=== PATIENT | female | born 1960 | race Caucasian/White ===

== ENCOUNTER → 2017-06-27 | Outpatient (CLI) | payer OTHER ==
--- NOTE | 2017-06-27 16:12 | RAD ---
EXAM: MAMMO DORA SCREENING BILATERAL HISTORY: Routine Screening. COMPARISON: 03/29/2015 Standard mammographic views are obtained of the bilateral breasts. Additionally three-dimensional tomographic images obtained. This study was interpreted with the benefit of Computerized Aided Detection (CAD). FINDINGS: The breast parenchyma shows scattered fibroglandular densities. Breast parenchyma level B.. There is no definite new suspicious spiculated mass or worrisome new cluster of microcalcifications. There is again mild benign-appearing calcification. IMPRESSION: No definite new suspicious mass. BI-RADS CATEGORY: 2 BENIGN FINDING RECOMMENDED FOLLOW-UP: 12M 12 MONTH FOLLOW-UP PQRS compliance statement: Patient information was entered into a reminder system with a target due date for the next mammogram. Mammography is a sensitive method for finding small breast cancers, but it does not detect them all and is not a substitute for careful clinical examination. A negative mammogram does not negate a clinically suspicious finding and should not result in delay in biopsying a clinically suspicious abnormality. "Our facility is accredited by the [employer] Mammography [employer]."
== END | disposition home or self-care (01) ==
LOC: MAMMO 13:54
PROVIDERS: ATTEND Nurse Practitioner Family
DX: Z12.31 Encounter for screening mammogram for malignant neoplasm of breast (principal)
CPT/HCPCS: 77063; G0202; 77067

== ENCOUNTER → 2017-07-11 | Outpatient (CLI) | payer OTHER ==
[~2017-07-11] VITALS: Ht 157.5 cm; Wt 72.6 kg
[~2017-07-11] MED LIST: ASCO-151 PO; CHOL10003 PO; SINCALIDE 1.5 MCG in IV NORMAL SALINE 50ML 30 ML IV ONE
--- NOTE | 2017-07-11 08:50 | RAD ---
EXAM: Right upper quadrant ultrasound. HISTORY: Right upper quadrant pain. COMPARISON: None. FINDINGS: Sonographic evaluation of the right upper quadrant was performed. The liver appears normal in parenchymal echotexture. Multiple anechoic lesions are consistent with cysts. Some contain thin septations, but no suspicious solid lesions are seen. The largest cyst measures 4.7 x 4.6 cm. The gallbladder wall is at the upper limits of normal thickness at 3 mm. There are no stones or pericholecystic fluid. There is no sonographic Silverio sign. The common duct measures 4 mm. The visualized portions of the head and body of the pancreas reveal no abnormality. The right kidney measures 11.4 cm. Cortical thickness and echogenicity are preserved. There is no hydronephrosis. The visualized portions of the abdominal aorta and inferior vena cava are grossly patent and normal in caliber. IMPRESSION: 1. The gallbladder wall is at the upper limits of normal thickness. This is nonspecific. Correlate for liver disease or volume overload. There is no cholelithiasis and cholecystitis is less favored. 2. Multiple benign-appearing hepatic cysts.
--- NOTE | 2017-07-11 11:33 | RAD ---
EXAM: Nuclear hepatobiliary scan with ejection fraction. HISTORY: Abdominal pain/nausea. TECHNIQUE: Serial static images are obtained of the liver and biliary system in a frontal projection following IV administration of 5.5 mCi of technetium-99m Choletec. After filling of the gallbladder, 1.5 mcg of sincalide were infused over 30 minutes and dynamic imaging continued over this period. The gallbladder ejection fraction was calculated. FINDINGS: There is prompt hepatic clearance of tracer from the blood pool. There is homogeneous distribution throughout the liver. There is normal filling of the gallbladder and normal emptying into the biliary system and small bowel. The gallbladder ejection fraction is 27.4% (normal >35%). IMPRESSION: 1. Decreased gallbladder ejection fraction suggesting biliary dyskinesia.
== END | disposition home or self-care (01) ==
LOC: US 07:43
PROVIDERS: ATTEND Internal Medicine Gastroenterology
DX: K76.89 Other specified diseases of liver (principal)
CPT/HCPCS: 76705; 78226; 96374; 96375; A9537; J2805

== ENCOUNTER → 2019-03-23 | Outpatient (CLI) | payer OTHER ==
[~2019-03-23] MED LIST changes: -SINCALIDE 1.5 MCG in IV NORMAL SALINE 50ML 30 ML IV ONE
--- NOTE | 2019-03-23 17:14 | RAD ---
INDICATION: Osteoporosis screening. Postmenopausal screening COMPARISON: None. TECHNIQUE: Bone densitometry was performed through the lumbar spine and right proximal femurs. FINDINGS: Lumbar Spine: L1-4 BMD: 1.09 T-Score: -0.8 Femoral Neck: BMD: 0.85 T-Score: -1.4 IMPRESSION: 1. Lumbar spine falls within the normal range. 2. Bilateral femoral neck falls within the osteopenic range. Electronically signed by: Wolf Metzger MD (03/23/2019 5:11 PM) [facility]
--- NOTE | 2019-03-25 15:42 | RAD ---
EXAM: MAMMO DORA SCREENING BILATERAL HISTORY: routine screening evaluation. COMPARISON: Prior mammographic imaging 06/27/2017, 03/29/2015, 02/17/2014 Bilateral CC and MLO views of the breasts were performed. Bilateral breast tomosynthesis was performed in CC and MLO projections. This study was interpreted with the benefit of Computerized Aided Detection (CAD). Breast Density: The breast parenchyma shows scattered fibroglandular densities. Breast parenchyma level B. FINDINGS: The parenchymal pattern appears stable. Benign calcifications are present. No suspicious masses, microcalcifications or architectural distortion is present to suggest malignancy in either breast. The visualized axillae are unremarkable. IMPRESSION: No mammographic evidence of malignancy. BI-RADS CATEGORY: 2 BENIGN FINDING(S) RECOMMENDED FOLLOW-UP: 12M 12 MONTH FOLLOW-UP Annual screening mammography is recommended, unless clinically indicated sooner based on symptoms or change in physical exam. PQRS compliance statement: Patient information was entered into a reminder system with a target due date for the next mammogram. Mammography is a sensitive method for finding small breast cancers, but it does not detect them all and is not a substitute for careful clinical examination. A negative mammogram does not negate a clinically suspicious finding and should not result in delay in biopsying a clinically suspicious abnormality. "Our facility is accredited by the [employer] Mammography [employer]." SHARYND
== END | disposition home or self-care (01) ==
LOC: DXRAD 09:34
PROVIDERS: ATTEND Physician Assistant Medical
DX: Z12.31 Encounter for screening mammogram for malignant neoplasm of breast (principal); Z13.820 Encounter for screening for osteoporosis; N64.89 Other specified disorders of breast; M85.88 Other specified disorders of bone density and structure, other site
CPT/HCPCS: 77063; 77067; 77080

== ENCOUNTER → 2019-10-14 | Outpatient (CLI) | payer OTHER ==
--- NOTE | 2019-10-14 14:14 | RAD ---
2 view left foot study Clinical indications: Left foot pain. Clinical concern for a spur of the heel. FINDINGS: No acute fracture or dislocation or lytic process or periosteal reaction is evident. Prominent plantar spur of the calcaneus is seen. No significant arthritic change is seen. IMPRESSION: Prominent plantar spur of the calcaneus. Electronically signed by: Mateo Tejeda MD (10/14/2019 2:12 PM) [facility]
== END | disposition home or self-care (01) ==
LOC: PMG 13:32
PROVIDERS: ATTEND Registered Nurse
DX: M77.32 Calcaneal spur, left foot (principal)
CPT/HCPCS: 73620

== ENCOUNTER → 2020-04-07 | Outpatient (CLI) | payer OTHER ==
--- NOTE | 2020-04-10 17:51 | RAD ---
DATE: 04/07/2020 1:30 PM EXAM: MAMMO DORA SCREENING BILATERAL HISTORY: Screening COMPARISON: 03/23/2019, 06/27/2017 Bilateral CC and MLO views of the breasts were performed. Bilateral breast tomosynthesis was performed in CC and MLO projections. This study was interpreted with the benefit of Computerized Aided Detection (CAD). FINDINGS: Breast Density: SCATTERED The breast parenchyma shows scattered fibroglandular densities. Breast parenchyma level B No suspicious masses, microcalcifications or architectural distortion is present to suggest malignancy in either breast. The visualized axillae are unremarkable. IMPRESSION: No mammographic evidence of malignancy. BI-RADS CATEGORY: 1 NEGATIVE RECOMMENDED FOLLOW-UP: 12M 12 MONTH FOLLOW-UP Annual screening mammography is recommended, unless clinically indicated sooner based on symptoms or change in physical exam. PQRS compliance statement: Patient information was entered into a reminder system with a target due date for the next mammogram. Mammography is a sensitive method for finding small breast cancers, but it does not detect them all and is not a substitute for careful clinical examination. A negative mammogram does not negate a clinically suspicious finding and should not result in delay in biopsying a clinically suspicious abnormality. "Our facility is accredited by the [employer] Mammography [employer]."
== END | disposition home or self-care (01) ==
LOC: MAMMO 13:20
PROVIDERS: ATTEND Physician Assistant Medical
DX: Z12.31 Encounter for screening mammogram for malignant neoplasm of breast (principal)
CPT/HCPCS: 77063; 77067

== ENCOUNTER → 2021-09-05 | Outpatient (CLI) | payer OTHER ==
--- NOTE | 2021-09-05 12:31 | RAD ---
Bilateral digital screening 2-D and 3-D (digital breast tomosynthesis) mammogram: Reason for examination: Routine screening. Comparison: Mammograms from 04/07/2020 and 03/23/2019. Interpretation was made with the benefit of CAD. FINDINGS: Breast density: Category B. There are scattered areas of fibroglandular density. No suspicious breast mass, malignant appearing calcifications, or architectural distortion is seen. IMPRESSION: No evidence of malignancy. Assessment: BI-RADS 1. Negative. Recommendation: Routine screening mammograms. The patient will receive a letter with the results in the mail. Patient information will be entered i nto the mammography reminder system with a target recall date for the next mammogram. A reminder suraj er will be generated. Electronically signed by: Zamzam Allen MD (09/05/2021 12:28 PM) [id number]
== END ==
LOC: MAMMO 07:37
PROVIDERS: ATTEND Family Medicine
DX: Z12.31 Encounter for screening mammogram for malignant neoplasm of breast (principal)
CPT/HCPCS: 77063; 77067